=== PATIENT | male | born 1965 | race Hispanic/Latino ===

== ENCOUNTER → 2018-03-22 11:15 | Outpatient (CLI) | payer OTHER, SELFPAY ==
[2018-03-22 11:35] LABS: Add Manual Diff / Slide Review NO; Basophils Percent Auto 0.5 % (0-2); Eosinophils Percent Auto 0.5 % (2-4); Hematocrit 45.6 % (41-53); Hemoglobin 15.6 g/dL (13.5-17.5); Mean Corpuscular HGB Conc 34.2 % (30-36); Mean Corpuscular Hemoglobin 31.8 PG (26-34); Mean Corpuscular Volume 92.9 fL (80-100); Monocytes Percent Auto 13.3 % (3-14); Neutrophils Absolute Auto 5800 /uL (3000-5900); Neutrophils Percent Auto 69.7 % (50-75); Platelet Count 278 X10^3/uL (150-400); Red Blood Cell Count 4.91 X10^6/uL (4.5-5.9); Red Cell Distribution Width 13.5 % (11.6-14.8); White Blood Cell Count 8.4 X10^3/uL (4.5-11.0)
[2018-03-22 11:54] LABS: Alanine Aminotransferase 42 IU/L (21-72); Albumin 4.9 g/dL (3.5-5.0); Albumin Globulin Ratio 1.4 (1.0-2.8); Alkaline Phosphatase 64 U/L (38-126); Aspartate Aminotransferase 40 IU/L (17-59); BUN Creatinine Ratio 8.8 (6-22); Blood Urea Nitrogen 7 mg/dL (9-20); Calcium 9.9 mg/dL (8.4-10.2); Carbon Dioxide 32 mmol/L (22-32); Chloride 93 mmol/L (98-107); Estimated Glomerular Filt Rate > 60.0 mL/min (>60); Globulin 3.4 g/dL (1.7-4.1); Glucose 95 mg/dL (70-100); HEMOLYSIS < 15 (0-50); Lactate Dehydrogenase 417 U/L (313-618); Potassium 4.5 mmol/L (3.4-5.1); Sodium 138 mmol/L (137-145); Total Protein 8.3 g/dL (6.3-8.2)
== END ==
PROVIDERS: Visit Provider Nurse Practitioner Gerontology
DX: C82.90 Follicular lymphoma, unspecified, unspecified site (principal)
CPT/HCPCS: 36415; 80053; 83615; 85025

== ENCOUNTER 2018-08-06 11:30 | Oncology outpatient (ONC) | payer OTHER, SELFPAY ==
[2018-08-06 11:48] VITALS: BP 138/95; PULSE 79; RESP 18; TEMP 36.8; O2SAT 98
--- NOTE | 2018-08-06 11:54 | ONC.PN ---
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 He underwent a mammogram and ultrasound and core biopsy of a left breast mass on 05/07/2017. Located within [facility] consulted and concluded that the expression of CD10, BCL6, and BCL2 is most consistent with in follicular lymphoma. He was consulted with Dr. Ritchie Clemente at [facility]. A PET CT scan was performed in [place] on 05/28/2017 and showed a 3.1 x 2.2 cm soft tissue nodule in the subcutaneous tissues of the left anterior chest wall with an SUV maximum 5.6 with no other sites of active disease. Dr. Clemente performed a bone marrow biopsy and aspiration which was negative for lymphoma. He underwent excisional biopsy of left chest wall mass on July 04 showing a B-cell lymphoma with follicular center origin, grade 1-[address] Galan felt that he should undergo radiation therapy with no chemotherapy. Dr. Engel at [facility] was consulted and patient underwent radiation therapy 3060 cGy in 10 doses between 08/11/2017 to 09/02/2017. Interim Events: Good energy. Good appetite. Weight has been stable. No fever, no night sweats. No SOB. No CP. No abd pain. No diarhea. No constipation. No musculosketal pain. - Additional ROS All systems PM: reviewed and no additional remarkable complaints except as stated Home Medications and Allergies Home Medications Medication Instructions Recorded Confirmed Type aspirin 81 mg PO QDAY #0 09/29/17 08/06/18 History cyanocobalamin (vitamin B-12) 1,000 mcg PO QDAY #0 10/21/17 08/06/18 History multivitamin [Multiple Vitamins] 1 tab PO QDAY #0 10/21/17 08/06/18 History fluticasone [Flonase Allergy 2 spray INTRANASAL PRN PRN 08/06/18 08/06/18 History Relief] lisinopril 2.5 mg PO DAILY 08/06/18 08/06/18 History Allergies Allergy/AdvReac Type Severity Reaction Status Date / Time meperidine [MEPERIDINE] Allergy Severe SEIZURE Unverified 01/20/18 12:26 Exam Vital signs: Temp 98.3 F 08/06/18 11:48 Pulse 79 08/06/18 11:48 Resp 18 08/06/18 11:48 BP 138/95 H 08/06/18 11:48 Pulse Ox 98 08/06/18 11:48 ECOG 1 Narrative: Constitutional: Well developed, well nourished, not in any acute respiratory distress, average body habitus, well groomed, pleasant and cooperative. HEENT: Normocephalic atraumatic. Extraocular muscle movement intact. Pupils are round, equal and reactive to light and accommodations. Anicteric sclera. No hearing difficulty; Oral mucus membrane moist and without ulcers. Neck: Supple, symmetrical, and tracheal midline; No palpable thyromegaly and no palpable lymph nodes. Respiratory: No use of accessory muscles. Clear to auscultation, and no wheezes or rales or rubs. Cardiovascular: Regular rate and rhythm, S1 and S2 normal, no murmurs gallops or rubs. No JVD. No pitting edema of lower extremities. Abdomen: Soft, nontender, non-distended, bowel sounds normal, no palpable organomegaly, no hernia, no palpable masses. Lower extremities: No palpable pedal edema. Lymphatic: no palpable lymph nodes in the neck, axillae, or groins. Musculoskeletal: normal gait and station, no clubbing, no cyanosis, no pitting edema. Skin: no rashes, no ulcers, no petechiae Neurological: Awake and alert and oriented x3. CN II-XII grossly intact. No focal motor or sensory deficit. Psychiatric: Good judgment, good insight, normal affect, normal thought process, cooperative, no depression, no anxiety. . Results - Labs Reviewed - Imaging Additional studies: Procedures Injection or infusion of other therapeutic or prophylactic substance (10/29/13) Assessment and Plan (1) Follicular lymphoma Patient has stage IAE follicular lymphoma of the left chest wall. Patient underwent surgery followed by radiotherapy. Since then has been on active surveillance. Clinically I do not think there is any evidence of disease recurrence or metastasis. The laboratory tests from March 2018 showed slightly elevated total protein level (8.3), otherwise are unremarkable. I talked with the patient that I will continue current active surveillance Plan: 1. RTC in 6 months 2. CBC, CMP, LDH, B2M and SPEP w/reflex IFX 3. Instructed the patient to call us if there is any new signs or new concerns.
--- NOTE | 2018-08-06 12:01 | P.PNONC_ITS ---
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 He underwent a mammogram and ultrasound and core biopsy of a left breast mass on . [facility] consulted and concluded that the expression of CD10, BCL6, and BCL2 is most consistent with in follicular lymphoma. He was consulted with Dr. Ritchie Clemente at [facility]. A PET CT scan was performed in [place] on 05/28/2017 and showed a 3.1 x 2.2 cm soft tissue nodule in the subcutaneous tissues of the left anterior chest wall with an SUV maximum 5.6 with no other sites of active disease. Dr. Clemente performed a bone marrow biopsy and aspiration which was negative for lymphoma. He underwent excisional biopsy of left chest wall mass on July 04 showing a B-cell lymphoma with follicular center origin, grade 1-[address] Galan felt that he should undergo radiation therapy with no chemotherapy. Dr. Engel at [facility] was consulted and patient underwent radiation therapy 3060 cGy in 10 doses between 08/11/2017 to 2016. Interim Events: Good energy. Good appetite. Weight has been stable. No fever, no night sweats. No SOB. No CP. No abd pain. No diarhea. No constipation. No musculosketal pain. - Additional ROS All systems PM: reviewed and no additional remarkable complaints except as stated Home Medications and Allergies Home Medications Medication Instructions Recorded Confirmed Type aspirin 81 mg PO QDAY #0 09/29/17 08/06/18 History cyanocobalamin (vitamin B-12) 1,000 mcg PO QDAY #0 10/21/17 08/06/18 History multivitamin [Multiple Vitamins] 1 tab PO QDAY #0 10/21/17 08/06/18 History fluticasone [Flonase Allergy 2 spray INTRANASAL PRN PRN 08/06/18 08/06/18 History Relief] lisinopril 2.5 mg PO DAILY 08/06/18 08/06/18 History Allergies Allergy/AdvReac Type Severity Reaction Status Date / Time meperidine [MEPERIDINE] Allergy Severe SEIZURE Unverified 01/20/18 12:26 Exam Vital signs: Temp 98.3 F 08/06/18 11:48 Pulse 79 08/06/18 11:48 Resp 18 08/06/18 11:48 BP 138/95 H 08/06/18 11:48 Pulse Ox 98 08/06/18 11:48 ECOG 1 Narrative: Constitutional: Well developed, well nourished, not in any acute respiratory distress, average body habitus, well groomed, pleasant and cooperative. HEENT: Normocephalic atraumatic. Extraocular muscle movement intact. Pupils are round, equal and reactive to light and accommodations. Anicteric sclera. No hearing difficulty; Oral mucus membrane moist and without ulcers. Neck: Supple, symmetrical, and tracheal midline; No palpable thyromegaly and no palpable lymph nodes. Respiratory: No use of accessory muscles. Clear to auscultation, and no wheezes or rales or rubs. Cardiovascular: Regular rate and rhythm, S1 and S2 normal, no murmurs gallops or rubs. No JVD. No pitting edema of lower extremities. Abdomen: Soft, nontender, non-distended, bowel sounds normal, no palpable organomegaly, no hernia, no palpable masses. Lower extremities: No palpable pedal edema. Lymphatic: no palpable lymph nodes in the neck, axillae, or groins. Musculoskeletal: normal gait and station, no clubbing, no cyanosis, no pitting edema. Skin: no rashes, no ulcers, no petechiae Neurological: Awake and alert and oriented x3. CN II-XII grossly intact. No focal motor or sensory deficit. Psychiatric: Good judgment, good insight, normal affect, normal thought process , cooperative, no depression, no anxiety. . Results - Labs Reviewed - Imaging Additional studies: Procedures Injection or infusion of other therapeutic or prophylactic substance (10/29/13) Assessment and Plan (1) Follicular lymphoma Patient has stage IAE follicular lymphoma of the left chest wall. Patient underwent surgery followed by radiotherapy. Since then has been on active surveillance. Clinically I do not think there is any evidence of disease recurrence or metastasis. The laboratory tests from March 2018 showed slightly elevated total protein level (8.3), otherwise are unremarkable. I talked with the patient that I will continue current active surveillance Plan: 1. RTC in 6 months 2. CBC, CMP, LDH, B2M and SPEP w/reflex IFX 3. Instructed the patient to call us if there is any new signs or new concerns.
== END 2018-08-19 13:25 ==
PROVIDERS: PCP Internal Medicine; Visit Provider Internal Medicine Hematology & Oncology
DX: C82.12 Follicular lymphoma grade II, intrathoracic lymph nodes (principal)
CPT/HCPCS: 99214

== ENCOUNTER 2018-10-17 04:44 | Emergency (ER) | payer OTHER, SELFPAY ==
[2018-10-17 04:51] VITALS: BP 153/89; PULSE 88; RESP 18; TEMP 36.6; O2SAT 98; BMI 30.5
--- NOTE | 2018-10-17 04:55 | DI.US.S_ITS ---
PROCEDURE: US ABDOMEN COMPLETE INDICATIONS: PAIN TECHNIQUE: Real-time scanning was performed of the abdominal and retroperitoneal organs, with image documentation. COMPARISON: [facility], CT, KIDNEY/ URETER/BLADDER, 08/23/2013, 15:57. FINDINGS: Liver: Liver is normal in size and increased in echogenicity consistent with fatty infiltration. Gallbladder: No gallstones, gallbladder wall thickening, or pericholecystic fluid. Biliary ducts: Intrahepatic bile ducts are non-dilated. Extrahepatic bile duct caliber measures up to 7 mm. Normal is 6-7 mm or less in diameter, or 10 mm or less post-cholecystectomy. Pancreas: Not well-seen due to bowel gas. Spleen: Spleen is normal in size and homogeneous in echotexture. Kidneys: Right kidney measures 10.7 cm long; left kidney measures 9.9 cm long. No hydronephrosis. Aorta: Visualized aorta is normal in caliber at less than 3 cm. Iliacs: Proximal common iliac arteries are not well seen. IVC: Intrahepatic inferior vena cava is patent. Miscellaneous: No free abdominal fluid. IMPRESSION: 1. No evidence of cholelithiasis or cholecystitis. 2. Mild prominence of the common bile duct measuring up to 7 mm. Recommend correlation with laboratory values. 3. Increased hepatic echogenicity compatible with steatosis. Dictated by: Pranav Lowery M.D. on 10/17/2018 at 12:41 Approved by: Pranav Lowery M.D. on 10/17/2018 at 12:44
--- NOTE | 2018-10-17 05:10 | ED_ITS ---
HPI - Abdominal Pain General Chief Complaint: Abdominal Pain Stated Complaint: Anxiety, rapid breathing, abd pain Time Seen by Provider: 10/17/18 04:54 Source: patient, family and EMS Mode of arrival: EMS Limitations: no limitations History of Present Illness HPI narrative: 53-year-old smoking male presents by EMS for evaluation abdominal pain and difficulty breathing. He has a history of anxiety, depression hypertension and went to bed feeling normal. He awoke feeling a bit abnormal and felt thirsty and hungry, he consumes some peanut butter and soon thereafter developed significant epigastric pain and nausea which scared him, he proceeded to feel short of breath and breathing rapidly. He felt like he could move his body and called for EMS transport. His pain is worse with motion and improves with rest. He has nausea but denies any vomiting. He has had no fever or chills. He drank a significant amount of alcohol yesterday, more than is normal for him. He he denies any change in bowel habits. He denies any recent travel, surgeries or other risk factors for PE. MD complaint: abdominal pain Onset (ago): minute(s) Pain Consistency: intermittent Location: epigastric Severity: moderate Quality: cramping and stabbing Radiation: back Migration to: no migration Relieving factors: nothing Exacerbating factors: eating Associated symptoms: nausea and other Related Data Home Medications Medication Instructions Recorded Confirmed aspirin 81 mg PO QDAY #0 09/29/17 08/06/18 cyanocobalamin (vitamin B-12) 1,000 mcg PO QDAY #0 10/21/17 08/06/18 multivitamin [Multiple Vitamins] 1 tab PO QDAY #0 10/21/17 08/06/18 fluticasone [Flonase Allergy 2 spray INTRANASAL PRN PRN 08/06/18 08/06/18 Relief] lisinopril 2.5 mg PO DAILY 08/06/18 08/06/18 Previous Rx's Medication Instructions Recorded ondansetron 4 mg PO TID-QID PRN #10 tab 10/17/18 Allergies Allergy/AdvReac Type Severity Reaction Status Date / Time meperidine [MEPERIDINE] Allergy Severe SEIZURE Unverified 01/20/18 12:26 Review of Systems Review of Systems All systems reviewed & are unremarkable except as noted in HPI and below Constitutional Denies chills, Denies fever(s), Denies lethargy and Denies weakness Eyes Denies change in vision, Denies eye discharge, Denies irritation and Denies loss of vision ENT Ears, Nose, Mouth, and Throat: Denies change in voice, Denies neck pain and Denies sore throat Cardiovascular Denies chest pain, Denies irregular heart rhythm, Denies lightheadedness, Denies palpitations, Reports dyspnea, Denies dyspnea on exertion and Denies orthopnea Respiratory Denies cough, Reports dyspnea, Denies dyspnea on exertion and Denies wheezing Gastrointestinal Gastrointestinal: Reports abdominal pain, Denies change in bowel habits, Denies diarrhea, Reports nausea and Denies vomiting Genitourinary Denies hematuria, Denies flank pain, Denies urinary incontinence and Denies urinary urgency Musculoskeletal Denies neck pain Integumentary/Breasts Denies pruritus, Denies erythema, Denies rash and Denies wounds Neurologic Denies confusion, Denies loss of vision and Denies weakness Psychiatric Reports anxiety, Denies confusion, Denies depression, Denies homicidal ideation and Denies suicidal ideation Endocrine Denies palpitations Hematologic/Lymphatic Denies easy bruising Allergic/Immunologic Denies wheezing PFSH Social History details: engaged lives independently: Yes Smoking Status: Current every day smoker Exam Narrative Exam Narrative: GENERAL: 53-year-old male, anxious, tearful, smells of alcohol HEAD: Atraumatic. Normocephalic. No temporal or scalp tenderness. EYES: Pupils equal round and reactive. Extraocular motions intact. No scleral icterus. No injection or drainage. ENT: Nose without bleeding, purulent drainage or septal hematoma. Throat without erythema, tonsillar hypertrophy or exudate. Uvula midline. Airway patent. NECK: Trachea midline. No JVD or lymphadenopathy. Supple, nontender, no meningeal signs. CARDIOVASCULAR: Regular rate and rhythm without murmurs, gallops, or rubs. RESPIRATORY: Clear to auscultation. Breath sounds equal bilaterally. No wheezes , rales, or rhonchi. GASTROINTESTINAL: Abdomen soft, tender epigastrium, nondistended. No hepato- splenomegaly, or palpable masses. No guarding. EXTREMITIES: No clubbing, cyanosis, or edema. No joint tenderness, effusion, or edema noted. BACK: Nontender without deformity or crepitance. No flank tenderness. NEURO: AOx3. SKIN: No rash or erythema. Initial Vital Signs Initial Vital Signs: Vital Signs Temperature 97.8 F 10/17/18 04:51 Pulse Rate 88 10/17/18 04:51 Respiratory Rate 18 10/17/18 04:51 Blood Pressure 153/89 H 10/17/18 04:51 Pulse Oximetry 98 10/17/18 04:51 Course Orders Ordered: Discontinued Medications Sodium Chloride (Normal Saline 0.9%) 1,000 mls @ 1,000 mls/hr IV BOLUS ONE Stop: 10/17/18 05:53 Last Infusion: 10/17/18 06:20 Dose: 0 mls/hr Admin: 10/17/18 05:16 Dose: 1,000 mls/hr Lorazepam (Ativan) 0.5 mg IV NOW ONE Stop: 10/17/18 04:57 Last Admin: 10/17/18 06:20 Dose: Ondansetron HCl (Zofran) 4 mg IV NOW ONE Stop: 10/17/18 05:15 Last Admin: 10/17/18 05:15 Dose: 4 mg Vital Signs - 8 hr 10/17/18 04:51 Temperature 97.8 F Pulse Rate 88 Respiratory Rate 18 Blood Pressure 153/89 H Pulse Oximetry 98 MDM - Abdominal Pain Differential Diagnosis Differential diagnosis: Likely abdominal pain, gastroenteritis, pancreatitis and small bowel obstruction Lab Data Attestation: I reviewed the patient's lab results. Result diagrams: 10/17/18 05:05 10/17/18 05:05 Lab Results 10/17/18 10/17/18 10/17/18 Range/Units 05:05 05:05 05:05 WBC 9.8 (4.5-11.0) X10^3/uL RBC 4.73 (4.5-5.9) X10^6/uL Hgb 15.5 (13.5-17.5) g/dL Hct 44.8 (41-53) % MCV 94.7 (80-100) fL MCH 32.7 (26-34) PG MCHC 34.6 (30-36) % RDW 14.0 (11.6-14.8) % Plt Count 242 (150-400) X10^3/uL Neut % (Auto) 68.0 (50-75) % Lymph % (Auto) 22.6 L (25-40) % [place] % (Auto) 5.9 (3-14) % Eos % (Auto) 3.0 (2-4) % Baso % (Auto) 0.5 (0-2) % Neut # (Auto) 6700 (0327-1063) /uL Sodium 142 (137-145) mmol/L Potassium 3.6 (3.4-5.1) mmol/L Chloride 101 (98-107) mmol/L Carbon Dioxide 22 (22-32) mmol/L BUN 18 (9-20) mg/dL Creatinine 0.90 (0.66-1.25) mg/dL Estimated GFR > 60.0 (>60) mL/min BUN/Creatinine Ratio 20.0 (6-22) Glucose 114 H (70-100) mg/dL Calcium 9.9 (8.4-10.2) mg/dL Total Bilirubin 0.3 (0.2-1.3) mg/dL AST 43 (17-59) IU/L ALT 48 (21-72) IU/L Alkaline Phosphatase 79 (38-126) U/L Troponin I < 0.012 (0.01-0.034) ng/mL Total Protein 7.8 (6.3-8.2) g/dL Albumin 4.7 (3.5-5.0) g/dL Globulin 3.1 (1.7-4.1) g/dL Albumin/Globulin Ratio 1.5 (1.0-2.8) Lipase 150 (23-300) U/L Ethyl Alcohol 166 mg/dL MDM Narrative Medical decision making narrative: Multiple etiologies of these symptoms including KS/PE which are thought much less likely given resolution of symptoms on arrival, normal EKG, normal vitals and lack of risk factors. GB/pancreatitis considered but thought less likely given normal labs and US. Patient and fiancee given return precautions including N/V/Fever >101, CP/SOB, worsening abdominal pain, etc. He verbalizes understanding and agreement with plan. Discharge Plan Departure Patient Disposition: Home Clinical Impression: Abdominal pain, acute, epigastric, Anxiety, Alcohol abuse Discharge Date/Time: 10/17/18 06:36 Interventions: ED Discharge Assessment Last Done: 10/17/18 06:33 Instructions: DI for Abdominal Pain-Adult Activity Restrictions/Additional Instructions: 1. Drink plenty of fluids with frequent small sips. 2. For the next 24 hours a clear liquid diet is advised. After that please employ a brat diet which would include bananas, rice, apples, toast. 3. Please take medications as directed. 4. Please follow-up with your doctor in the next 1-2 days. Call the office for an appointment. 5. Please return to the emergency Department for any worsening or persistent symptoms, such as increasing pain or fever. Prescriptions: New ondansetron 4 mg tablet,disintegrating 4 mg PO TID-QID PRN (Reason: nausea and vomiting) Qty: 10 RF: 0 No Action aspirin 81 MG tablet,chewable 81 mg PO QDAY Qty: 0 RF: 0 cyanocobalamin (vitamin B-12) 1,000 MCG tablet extended release 1,000 mcg PO QDAY Qty: 0 RF: 0 multivitamin [Multiple Vitamins] 1 EACH tablet 1 tab PO QDAY Qty: 0 RF: 0 fluticasone [Flonase Allergy Relief] 9.9 ML spray,suspension 2 spray Intranasal PRN PRN (Reason: Allergy Symptoms) RF: 0 lisinopril 2.5 mg Tablet 2.5 mg PO DAILY RF: 0 Referrals: Omayra Horton MD [Primary Care Provider] -
[2018-10-17] MEDS: ONDANSETRON 4 MG/2 ML INJ IV (05:15)
[2018-10-17] MEDS: SODIUM CHLORIDE 0.9% 1,000 ML 1000 ML IV (05:16)
[2018-10-17 05:30] LABS: Alanine Aminotransferase 48 IU/L (21-72); Albumin 4.7 g/dL (3.5-5.0); Albumin Globulin Ratio 1.5 (1.0-2.8); Alkaline Phosphatase 79 U/L (38-126); Aspartate Aminotransferase 43 IU/L (17-59); Bilirubin Total 0.3 mg/dL (0.2-1.3); Blood Urea Nitrogen 18 mg/dL (9-20); Calcium 9.9 mg/dL (8.4-10.2); Carbon Dioxide 22 mmol/L (22-32); Chloride 101 mmol/L (98-107); Estimated Glomerular Filt Rate > 60.0 mL/min (>60); Globulin 3.1 g/dL (1.7-4.1); Glucose 114 mg/dL (70-100); HEMOLYSIS 15 (0-50); Potassium 3.6 mmol/L (3.4-5.1); Total Protein 7.8 g/dL (6.3-8.2)
[2018-10-17 05:31] LABS: Sodium 142 mmol/L (137-145)
[2018-10-17 05:36] LABS: Add Manual Diff / Slide Review NO; Basophils Percent Auto 0.5 % (0-2); Hematocrit 44.8 % (41-53); Hemoglobin 15.5 g/dL (13.5-17.5); Lymphocytes Percent Auto 22.6 % (25-40); Mean Corpuscular HGB Conc 34.6 % (30-36); Mean Corpuscular Hemoglobin 32.7 PG (26-34); Mean Corpuscular Volume 94.7 fL (80-100); Monocytes Percent Auto 5.9 % (3-14); Neutrophils Absolute Auto 6700 /uL (1500-7000); Platelet Count 242 X10^3/uL (150-400); Red Blood Cell Count 4.73 X10^6/uL (4.5-5.9); White Blood Cell Count 9.8 X10^3/uL (4.5-11.0)
[2018-10-17 05:47] LABS: Troponin I < 0.012 ng/mL (0.01-0.034)
[2018-10-17 06:05] LABS: Lipase 150 U/L (23-300)
[2018-10-17 06:29] LABS: Ethanol (ETOH) 166 mg/dL
[2018-10-17 06:33] VITALS: BP 121/78; PULSE 84; RESP 16; O2SAT 95
== END 2018-10-17 06:36 | disposition home or self-care (01) ==
PROVIDERS: Emergency Provider Emergency Medicine; PCP Internal Medicine
DX: R10.13 Epigastric pain (principal); F41.9 Anxiety disorder, unspecified; F10.10 Alcohol abuse, uncomplicated
CPT/HCPCS: 36591; 76700; 80053; 80320; 83690; 84484; 85025; 93005; 96361; 96374; 99283; 99285; J2405

== ENCOUNTER → 2018-12-10 09:46 | Outpatient (CLI) | payer OTHER, SELFPAY ==
--- NOTE | 2018-12-10 11:56 | DI.CT.S_ITS ---
PROCEDURE: CT CHEST ABD PEL W CON INDICATIONS: follicular lymphoma, mass left chest TECHNIQUE: After the administration of oral and intravenous contrast, 5 mm thick sections acquired from the lung apices to the symphysis. 5 mm coronal and sagittal reformats were performed, with additional 7 mm coronal MIP reformats through the lungs. For radiation dose reduction, the following was used: automated exposure control, adjustment of mA and/or kV according to patient size. COMPARISON: [facility], CT, CT SIM, 07/30/2017, 13:40. FINDINGS: Image quality: Excellent. CHEST: Lungs and pleura: No acute airspace opacities. No suspicious pulmonary mass or nodules. No pleural effusions or pneumothorax. Central and peripheral airways appear patent and normal in caliber. Mediastinum: Heart size is normal. No pericardial effusion. No mediastinal or hilar adenopathy by size criteria. Thoracic aorta and central pulmonary arteries are normal in size. Esophagus is normal in caliber. No hiatal hernia. Chest wall: No axillary or supraclavicular adenopathy by size criteria. Thyroid gland is unremarkable. Previously noted irregular mass involving the subcutaneous tissues of the lower, outer aspect of the left chest wall is significantly smaller and less conspicuous. It previously measured approximately 3.7 cm x 2.1 cm in transverse dimension and today it measures approximately 2.7 cm x 0.7 cm in transverse dimension. This may represent residual mass versus sequela of prior treatment. No evidence for underlying osseous erosions. No adjacent stranding. ABDOMEN: Solid organs: Liver is normal in size and enhancement. There is diffuse hypoattenuation of the liver compatible with hepatic steatosis. Gallbladder is unremarkable. Biliary system is non dilated. Pancreas enhances normally. Spleen is normal in size and enhancement. No adrenal nodules. Kidneys demonstrate normal size and enhancement, without hydronephrosis. Peritoneum and bowel: Bowel loops demonstrate normal wall thickness and caliber. No free fluid or air. Nodes and vessels: No retroperitoneal or mesenteric adenopathy by size criteria. Aorta and inferior vena cava are normal in size. Miscellaneous: No ventral hernias. PELVIS: Genitourinary: Bladder wall thickness is normal. Miscellaneous: No inguinal hernias or adenopathy. Bones: No suspicious bony lesions. No vertebral body compression fractures. IMPRESSION: 1. Significant interval decrease in size and conspicuity of lower, outer left chest wall mass which may represent residual tumor versus sequela of previous treatment. There is no erosions, and adjacent soft tissue stranding, or lymphadenopathy. Otherwise, no CT evidence for metastatic disease in the chest, abdomen, or pelvis. 2. Diffuse hepatic steatosis. Dictated by: Rio Hernadez M.D. on 12/14/2018 at 10:59 Approved by: Rio Hernadez M.D. on 12/14/2018 at 11:11
== END ==
PROVIDERS: PCP Internal Medicine; Visit Provider Nurse Practitioner Gerontology
DX: C82.90 Follicular lymphoma, unspecified, unspecified site (principal); R22.2 Localized swelling, mass and lump, trunk; K76.0 Fatty (change of) liver, not elsewhere classified
CPT/HCPCS: 71260; 74177; Q9967

== ENCOUNTER → 2019-02-03 15:00 | Oncology outpatient (ONC) | payer OTHER, SELFPAY ==
[2018-12-07 14:41] VITALS: BP 147/84; PULSE 74; RESP 20; TEMP 36.3; O2SAT 98
[2018-12-07 15:45] LABS: Add Manual Diff / Slide Review NO; Basophils Absolute Auto 100 /uL (0-100); Basophils Percent Auto 1.1 % (0-2); Eosinophils Absolute Auto 200 /uL (0-450); Eosinophils Percent Auto 2.8 % (2-4); Hematocrit 39.6 % (41-53); Hemoglobin 14.2 g/dL (13.5-17.5); Lymphocytes Absolute Auto 2000 /uL (1100-4500); Lymphocytes Percent Auto 25.9 % (25-40); Mean Corpuscular HGB Conc 35.8 % (30-36); Mean Corpuscular Hemoglobin 32.7 PG (26-34); Mean Corpuscular Volume 91.3 fL (80-100); Monocytes Absolute Auto 800 /uL (0-900); Monocytes Percent Auto 10.4 % (3-14); Neutrophils Absolute Auto 4600 /uL (1500-7000); Neutrophils Percent Auto 59.8 % (50-75); Platelet Count 268 X10^3/uL (150-400); Red Blood Cell Count 4.34 X10^6/uL (4.5-5.9); Red Cell Distribution Width 13.6 % (11.6-14.8); White Blood Cell Count 7.7 X10^3/uL (4.5-11.0)
[2018-12-07 15:54] LABS: Alanine Aminotransferase 72 IU/L (21-72); Albumin Globulin Ratio 1.5 (1.0-2.8); Alkaline Phosphatase 59 U/L (38-126); Aspartate Aminotransferase 57 IU/L (17-59); BUN Creatinine Ratio 22.2 (6-22); Bilirubin Total 0.5 mg/dL (0.2-1.3); Blood Urea Nitrogen 20 mg/dL (9-20); Calcium 9.8 mg/dL (8.4-10.2); Carbon Dioxide 28 mmol/L (22-32); Chloride 96 mmol/L (98-107); Estimated Glomerular Filt Rate > 60.0 mL/min (>60); Globulin 3.3 g/dL (1.7-4.1); Glucose 93 mg/dL (70-100); HEMOLYSIS 27 (0-50); Lactate Dehydrogenase 435 U/L (313-618); Sodium 138 mmol/L (137-145); Total Protein 8.3 g/dL (6.3-8.2)
--- NOTE | 2018-12-07 16:40 | P.PNONC_ITS ---
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 Radiation was completed September 02, 2017. Patient presents today for same day urgent visit reporting a mass the size of a nickel in my left breast. Pt states she first noticed this 5-7 days ago. Patient denies any other changes in his health specifically no night sweats, no fatigue, no loss of appetite, no unexplained weight loss, no abdominal pain, nausea. No change in bowel or bladder habits. He remains working full-time at the [employer]. No headaches. He has not noticed any other lumps or bumps aside from left breast. He states it does feel similar to the mass he noted at time of diagnosis in 2016. Oncological History He felt a tennis ball sized mass on his left chest wall in March 2017. He underwent a mammogram and ultrasound and core biopsy of a left breast mass on 05/07/2017. [facility] consulted and concluded that the expression of CD10, BCL6, and BCL2 is most consistent with in follicular lymphoma. He was consulted with Dr. Ritchie Clemente at [facility]. A PET CT scan was performed in [place] on 05/28/2017 and showed a 3.1 x 2.2 cm soft tissue nodule in the subcutaneous tissues of the left anterior chest wall with an SUV maximum 5.6 with no other sites of active disease. Dr. Clemente performed a bone marrow biopsy and aspiration which was negative for lymphoma. He underwent excisional biopsy of left chest wall mass on July 04 showing a B-cell lymphoma with follicular center origin, grade 1-[address] Galan felt that he should undergo radiation therapy with no chemotherapy. Dr[facility] was [facility] and patient underwent radiation therapy 3060 cGy in 10 doses between 08/11/2017 to 09/02/2017. Home Medications and Allergies Home Medications Medication Instructions Recorded Confirmed Type aspirin 81 mg PO QDAY #0 09/29/17 08/06/18 History cyanocobalamin (vitamin B-12) 1,000 mcg PO QDAY #0 10/21/17 08/06/18 History multivitamin [Multiple Vitamins] 1 tab PO QDAY #0 10/21/17 08/06/18 History fluticasone [Flonase Allergy 2 spray INTRANASAL PRN PRN 08/06/18 08/06/18 History Relief] lisinopril 2.5 mg PO DAILY 08/06/18 08/06/18 History Allergies Allergy/AdvReac Type Severity Reaction Status Date / Time meperidine [MEPERIDINE] Allergy Severe SEIZURE Unverified 01/20/18 12:26 Exam Vital signs: Vital Signs Temp Pulse Resp BP Pulse Ox 12/07/18 14:41 97.3 F L 74 20 147/84 H 98 Intake and Output 12/07/18 12/07/18 12/07/18 07:59 15:59 23:59 Other: Weight 95.3 kg Patient Weight 12/08/18 07:59 Weight 95.3 kg Narrative: well appearing - Constitutional positive no acute distress - Routine HEENT Exam Eye: Present: conjunctivae pink. Absent: conjunctival icterus, scleral injection ENT: Present: mucous membranes moist, oropharynx clear - Routine Neck Exam Present: supple. Absent: lymphadenopathy - Routine Chest/Breast/Axilla Exam Chest wall exam standard: Absent: tenderness, mass Breast: Absent: tenderness, induration, mass, swelling Axillae: Absent: lymphadenopathy, mass, tenderness Comments: no palpable masses, no palpable adenopathy. Pt also unable to locate previously identified mass left breast stating I think it is gone. - Routine Respiratory Exam Present: Clear to auscultation bilaterally. Absent: rales, rhonchi, wheezes - Routine Cardiovascular Exam Present: RRR, S1, S2. Absent: murmur, gallop, rubs, JVD - Routine Abdominal Exam Present: soft, normoactive bowel sounds. Absent: tenderness, distended, organomegaly - Routine Extremities Exam Absent: edema, calf tenderness - Routine Skin Exam Present: intact, normal turgor. Absent: rash - Routine Neurological Exam Present: alert, oriented X3 - Routine Psychiatric Exam Present: normal affect Results - Labs Laboratory Last Values WBC 7.7 X10^3/uL (4.5-11.0) 12/07/18 15:31 RBC 4.34 X10^6/uL (4.5-5.9) L 12/07/18 15:31 Hgb 14.2 g/dL (13.5-17.5) 12/07/18 15:31 Hct 39.6 % (41-53) L 12/07/18 15:31 MCV 91.3 fL (80-100) 12/07/18 15: MCH 32.7 PG (26-34) 12/07/18 15: MCHC 35.8 % (30-36) 12/07/18 15:31 RDW 13.6 % (11.6-14.8) 12/07/18 15:31 Plt Count 268 X10^3/uL (150-400) 12/07/18 15:31 Neut % (Auto) 59.8 % (50-75) 12/07/18 15:31 Lymph % (Auto) 25.9 % (25-40) 12/07/18 15:31 [place] % (Auto) 10.4 % (3-14) 12/07/18 15:31 Eos % (Auto) 2.8 % (2-4) 12/07/18 15:31 Baso % (Auto) 1.1 % (0-2) 12/07/18 15: Neut # (Auto) 4600 /uL (9880-9530) 12/07/18 15:31 Lymph # (Auto) 2000 /uL (6700-8939) 12/07/18 15:31 [place] # (Auto) 800 /uL (0-900) 12/07/18 15: Eos # (Auto) 200 /uL (0-450) 12/07/18 15:31 Baso # (Auto) 100 /uL (0-100) 12/07/18 15:31 Sodium 138 mmol/L (137-145) 12/07/18 15:31 Potassium 4.0 mmol/L (3.4-5.1) 12/07/18 15:31 Chloride 96 mmol/L (98-107) L 12/07/18 15:31 Carbon Dioxide 28 mmol/L (22-32) 12/07/18 15:31 BUN 20 mg/dL (9-20) 12/07/18 15:31 Creatinine 0.90 mg/dL (0.66-1.25) 12/07/18 15:31 Estimated GFR > 60.0 mL/min (>60) 12/07/18 15:31 BUN/Creatinine Ratio 22.2 (6-22) H 12/07/18 15:31 Glucose 93 mg/dL (70-100) 12/07/18 15:31 Calcium 9.8 mg/dL (8.4-10.2) 12/07/18 15:31 Total Bilirubin 0.5 mg/dL (0.2-1.3) 12/07/18 15:31 AST 57 IU/L (17-59) 12/07/18 15:31 ALT 72 IU/L (21-72) 12/07/18 15:31 Alkaline Phosphatase 59 U/L (38-126) 12/07/18 15:31 Lactate Dehydrogenase 435 U/L (313-618) 12/07/18 15:31 Total Protein 8.3 g/dL (6.3-8.2) H 12/07/18 15:31 Albumin 5.0 g/dL (3.5-5.0) 12/07/18 15:31 Globulin 3.3 g/dL (1.7-4.1) 12/07/18 15:31 Albumin/Globulin Ratio 1.5 (1.0-2.8) 12/07/18 15:31 - Imaging Additional studies: Procedures Injection or infusion of other therapeutic or prophylactic substance (10/29/13) Assessment and Plan (1) Follicular lymphoma Current visit: No Status: Acute Patient is a 53-year-old male who carries a diagnosis of stage IA-E follicular lymphoma involving the left chest wall. He presents today for same day urgent v isit reporting he had a palpable mass in his left breast similar to that at time of diagnosis in 2017. On exam today I was unable to identify any palpable adenopathy, no palpable masses. Additionally, patient himself could no longer locate previously palpable left breast mass on exam today. Regardless, noting patient's history I will send him for a CT scan of chest and abdomen. It is reassuring he is without any B symptoms whatsoever. I also ordered CBC, CMP, LDH stat for today all of which unremarkable specifically LDH within normal limits at 435. We will schedule CT scan for as soon as possible hopefully within the next few days. I will have the patient return to clinic after CT scan to review results with his oncologist Dr Britt. We discussed also the possibility of PET-CT and/or bone marrow bx if indicated after CT. Pt verbalizes understanding and agrees with this plan of care.
--- NOTE | 2018-12-14 09:43 | ONC.APRN.PN ---
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 Radiation was completed September 02, 2017. Patient presents today to review recent CT imaging. Prior visit December 07, 2018 patient presented for same day urgent visit reporting a newly palpable mass in left breast. On exam that day this mass was not palpable by myself nor the patient. Regardless, we did move forward with imaging in the form of CT scan. Today on exam patient states he is no longer able to palpate the previously palpable mass in his left chest. Overall he reports excellent health . He is currently working very long hours for the next 2-4 weeks at the [employer] shut down. Patient denies any other changes in his health specifically no night sweats, no fatigue, no loss of appetite, no unexplained weight loss, no abdominal pain, nausea. No change in bowel or bladder habits. He remains working full-time at the [employer]. CT scan of chest abdomen pelvis with contrast December 10, 2018 did not demonstrate any new or metastatic disease. In fact a significant interval decrease in the size and conspicuity of previously identified left chest wall mass. No headaches. He has not noticed any other lumps or bumps aside from left breast. He states it does feel similar to the mass he noted at time of diagnosis in 2017. Oncological History He felt a tennis ball sized mass on his left chest wall in March 2017. He underwent a mammogram and ultrasound and core biopsy of a left breast mass on 05/07/2017. [facility] consulted and concluded that the expression of CD10, BCL6, and BCL2 is most consistent with in follicular lymphoma. He was consulted with Dr. Ritchie Clemente at [facility]. A PET CT scan was performed in [place] on 05/28/2017 and showed a 3.1 x 2.2 cm soft tissue nodule in the subcutaneous tissues of the left anterior chest wall with an SUV maximum 5.6 with no other sites of active disease. Dr. Clemente performed a bone marrow biopsy and aspiration which was negative for lymphoma. He underwent excisional biopsy of left chest wall mass on July 04 showing a B-cell lymphoma with follicular center origin, grade 1-[address] Galan felt that he should undergo radiation therapy with no chemotherapy. Dr. Engel at [facility] was consulted and patient underwent radiation therapy 3060 cGy in 10 doses between 08/11/2017 to 09/02/2017. Home Medications and Allergies Home Medications Medication Instructions Recorded Confirmed Type aspirin 81 mg PO QDAY #0 09/29/17 08/06/18 History cyanocobalamin (vitamin B-12) 1,000 mcg PO QDAY #0 10/21/17 08/06/18 History multivitamin [Multiple Vitamins] 1 tab PO QDAY #0 10/21/17 08/06/18 History fluticasone [Flonase Allergy 2 spray INTRANASAL PRN PRN 08/06/18 08/06/18 History Relief] lisinopril 2.5 mg PO DAILY 08/06/18 08/06/18 History Allergies Allergy/AdvReac Type Severity Reaction Status Date / Time meperidine [MEPERIDINE] Allergy Severe SEIZURE Unverified 01/20/18 12:26 Exam - Constitutional positive no acute distress - Routine Neck Exam Present: supple. Absent: lymphadenopathy - Routine Chest/Breast/Axilla Exam Breast: Absent: tenderness, induration, mass Axillae: Absent: lymphadenopathy, mass, tenderness - Routine Respiratory Exam Present: Clear to auscultation bilaterally. Absent: rales, rhonchi, wheezes - Routine Cardiovascular Exam Present: RRR, S1, S2. Absent: murmur, gallop, rubs, JVD - Routine Abdominal Exam Present: soft, normoactive bowel sounds. Absent: tenderness, distended, organomegaly - Routine Extremities Exam Absent: edema - Routine Skin Exam Present: normal turgor. Absent: rash - Routine Neurological Exam Present: alert, oriented X3 - Routine Psychiatric Exam Present: normal affect Results - Labs Laboratory Last Values WBC 7.7 X10^3/uL (4.5-11.0) 12/07/18 15:31 RBC 4.34 X10^6/uL (4.5-5.9) L 12/07/18 15:31 Hgb 14.2 g/dL (13.5-17.5) 12/07/18 15:31 Hct 39.6 % (41-53) L 12/07/18 15:31 MCV 91.3 fL (80-100) 12/07/18 15:31 MCH 32.7 PG (26-34) 12/07/18 15:31 MCHC 35.8 % (30-36) 12/07/18 15:31 RDW 13.6 % (11.6-14.8) 12/07/18 15:31 Plt Count 268 X10^3/uL (150-400) 12/07/18 15:31 Neut % (Auto) 59.8 % (50-75) 12/07/18 15:31 Lymph % (Auto) 25.9 % (25-40) 12/07/18 15:31 [place] % (Auto) 10.4 % (3-14) 12/07/18 15:31 Eos % (Auto) 2.8 % (2-4) 12/07/18 15:31 Baso % (Auto) 1.1 % (0-2) 12/07/18 15:31 Neut # (Auto) 4600 /uL (2541-9200) 12/07/18 15:31 Lymph # (Auto) 2000 /uL (5885-1726) 12/07/18 15:31 [place] # (Auto) 800 /uL (0-900) 12/07/18 15:31 Eos # (Auto) 200 /uL (0-450) 12/07/18 15:31 Baso # (Auto) 100 /uL (0-100) 12/07/18 15:31 Sodium 138 mmol/L (137-145) 12/07/18 15:31 Potassium 4.0 mmol/L (3.4-5.1) 12/07/18 15:31 Chloride 96 mmol/L (98-107) L 12/07/18 15:31 Carbon Dioxide 28 mmol/L (22-32) 12/07/18 15:31 BUN 20 mg/dL (9-20) 12/07/18 15:31 Creatinine 0.90 mg/dL (0.66-1.25) 12/07/18 15:31 Estimated GFR > 60.0 mL/min (>60) 12/07/18 15:31 BUN/Creatinine Ratio 22.2 (6-22) H 12/07/18 15:31 Glucose 93 mg/dL (70-100) 12/07/18 15:31 Calcium 9.8 mg/dL (8.4-10.2) 12/07/18 15:31 Total Bilirubin 0.5 mg/dL (0.2-1.3) 12/07/18 15:31 AST 57 IU/L (17-59) 12/07/18 15:31 ALT 72 IU/L (21-72) 12/07/18 15:31 Alkaline Phosphatase 59 U/L (38-126) 12/07/18 15:31 Lactate Dehydrogenase 435 U/L (313-618) 12/07/18 15:31 Total Protein 8.3 g/dL (6.3-8.2) H 12/07/18 15:31 Albumin 5.0 g/dL (3.5-5.0) 12/07/18 15:31 Globulin 3.3 g/dL (1.7-4.1) 12/07/18 15:31 Albumin/Globulin Ratio 1.5 (1.0-2.8) 12/07/18 15:31 - Imaging Additional studies: Procedures Injection or infusion of other therapeutic or prophylactic substance (10/29/13) Assessment and Plan (1) Follicular lymphoma Current visit: No Status: Acute Patient is a 53-year-old male who carries a diagnosis of stage IA-E follicular lymphoma involving the left chest wall. Patient was seen urgently per his request on December 07, 2018 as he noticed a new palpable mass in his left chest. This is in the same place where he felt previous mass and was subsequently identified as follicular lymphoma. On exam that day I was unable to palpate any mass, patient also was unable to palpate on that day. He has not been able to palpate since. He had no other constitutional symptoms to report. Regardless I did order CT scan which did not identify any new disease, no metastatic disease. He has residual tumor versus possible sequelae of previous treatment in his lower outer left chest wall however this is significantly decreased in size and conspicuity of previous imaging. The pt exam and scan are quite reassuring, no clinical signs or symptoms to suggest disease recurrence. Patient has previously scheduled appointment in January of [address] Britt which I have asked him to keep.
[2018-12-14 15:08] VITALS: BP 131/86; PULSE 72; RESP 18; TEMP 36.6; O2SAT 98
[2019-01-26 12:29] LABS: Add Manual Diff / Slide Review NO; Basophils Absolute Auto 100 /uL (0-100); Basophils Percent Auto 0.7 % (0-2); Eosinophils Absolute Auto 200 /uL (0-450); Eosinophils Percent Auto 2.9 % (2-4); Hematocrit 43.5 % (41-53); Hemoglobin 14.8 g/dL (13.5-17.5); Lymphocytes Absolute Auto 2100 /uL (1100-4500); Mean Corpuscular HGB Conc 33.9 % (30-36); Mean Corpuscular Hemoglobin 32.5 PG (26-34); Mean Corpuscular Volume 95.9 fL (80-100); Monocytes Absolute Auto 900 /uL (0-900); Monocytes Percent Auto 10.7 % (3-14); Neutrophils Absolute Auto 4800 /uL (1500-7000); Neutrophils Percent Auto 59.7 % (50-75); Platelet Count 262 X10^3/uL (150-400); Red Blood Cell Count 4.54 X10^6/uL (4.5-5.9); White Blood Cell Count 8.1 X10^3/uL (4.5-11.0)
[2019-01-26 12:40] LABS: LDH Body Fluid 383 U/L
[2019-01-26 13:12] LABS: Alanine Aminotransferase 65 IU/L (21-72); Albumin 5.2 g/dL (3.5-5.0); Albumin Globulin Ratio 1.8 (1.0-2.8); Alkaline Phosphatase 52 U/L (38-126); Aspartate Aminotransferase 56 IU/L (17-59); BUN Creatinine Ratio 16.3 (6-22); Bilirubin Total 0.4 mg/dL (0.2-1.3); Blood Urea Nitrogen 13 mg/dL (9-20); Calcium 10.1 mg/dL (8.4-10.2); Carbon Dioxide 27 mmol/L (22-32); Chloride 95 mmol/L (98-107); Estimated Glomerular Filt Rate > 60.0 mL/min (>60); Globulin 2.9 g/dL (1.7-4.1); Glucose 81 mg/dL (70-100); HEMOLYSIS < 15 (0-50); Potassium 3.9 mmol/L (3.4-5.1); Sodium 137 mmol/L (137-145); Total Protein 8.1 g/dL (6.3-8.2)
[2019-01-28 13:10] LABS: Beta-2-Microglobulin 1.53 mg/L (< 2.52)
[2019-01-28 21:36] LABS: Albumin 4.9 g/dL (3.8-4.8); Alpha 1 Globulin 0.2 g/dL (0.2-0.3); Alpha 2 Globulin 0.5 g/dL (0.5-0.9); Beta 1 Globulin 0.5 g/dL (0.4-0.6); Gamma Globulin 1.1 g/dL (0.8-1.7); Protein, Total 7.6 g/dL (6.1-8.1)
--- NOTE | 2019-02-03 13:49 | ONC.PN ---
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 Radiation was completed September 02, 2017. Patient presents here today for scheduled follow-up visit. Patient currently has been on ketogenic diet. He has lost probably 10-20 lb. He said he feels healthy and good. He does not have any fever or chills. He does not have night sweats. His energetic. Does not have any new palpable masses or lumps in the axilla or in the chest area. No abdominal pain no diarrhea and no constipation. Oncological History He felt a tennis ball sized mass on his left chest wall in March 2017. He underwent a mammogram and ultrasound and core biopsy of a left breast mass on 05/07/2017. [facility] consulted and concluded that the expression of CD10, BCL6, and BCL2 is most consistent with in follicular lymphoma. He was consulted with Dr. Ritchie Clemente at [facility]. A PET CT scan was performed in [place] on 05/28/2017 and showed a 3.1 x 2.2 cm soft tissue nodule in the subcutaneous tissues of the left anterior chest wall with an SUV maximum 5.6 with no other sites of active disease. Dr. Clemente performed a bone marrow biopsy and aspiration which was negative for lymphoma. He underwent excisional biopsy of left chest wall mass on July 04 showing a B-cell lymphoma with follicular center origin, grade 1-[address] Galan felt that he should undergo radiation therapy with no chemotherapy. Dr. Engel at [facility] was consulted and patient underwent radiation therapy 3060 cGy in 10 doses between 08/11/2017 to 09/02/2017. - Additional ROS All systems PM: reviewed and no additional remarkable complaints except as stated Home Medications and Allergies Home Medications Medication Instructions Recorded Confirmed Type aspirin 81 mg PO QDAY #0 09/29/17 08/06/18 History cyanocobalamin (vitamin B-12) 1,000 mcg PO QDAY #0 10/21/17 08/06/18 History multivitamin [Multiple Vitamins] 1 tab PO QDAY #0 10/21/17 08/06/18 History fluticasone propionate [Flonase 2 spray INTRANASAL PRN PRN 08/06/18 08/06/18 History Allergy Relief] lisinopril 2.5 mg PO DAILY 08/06/18 08/06/18 History Allergies Allergy/AdvReac Type Severity Reaction Status Date / Time meperidine [MEPERIDINE] Allergy Severe SEIZURE Unverified 01/20/18 12:26 Exam Vital signs: Last Vital Signs Temp 97.2 F L 02/03/19 15:13 Pulse 70 02/03/19 15:13 Resp 18 02/03/19 15:13 BP 131/86 02/03/19 15:13 Pulse Ox 98 02/03/19 15:13 ECOG 1 Narrative: Gen: WDWN, NAD, pleasant and cooperative. Came here by himself. HEENT: NCAT, EOMI, PERRLA, anicteric sclera. Neck: Supple, No palpable thyromegaly or lymphadenopathy. Respiratory: CTAB, no wheezes audible. No JVD Cardiovascular: RRR, S1 and S2 normal, no M/G/R. Abdomen: Soft, NTND, BS normal, no palpable organomegaly Extremities: No LE pitting edema. Lymphatic: no palpable lymph nodes in the neck, axillae, or groins. Neurological: AOx3, CN II-XII grossly intact. No focal motor or sensory deficit. Psychiatric: Good judgment and insight; normal affect; normal thought process; cooperative, no depression, no anxiety. Results - Labs Laboratory Last Values WBC 8.1 X10^3/uL (4.5-11.0) 01/26/19 12:13 RBC 4.54 X10^6/uL (4.5-5.9) 01/26/19 12:13 Hgb 14.8 g/dL (13.5-17.5) 01/26/19 12:13 Hct 43.5 % (41-53) 01/26/19 12:13 MCV 95.9 fL (80-100) 01/26/19 12:13 MCH 32.5 PG (26-34) 01/26/19 12:13 MCHC 33.9 % (30-36) 01/26/19 12:13 RDW 13.0 % (11.6-14.8) 01/26/19 12:13 Plt Count 262 X10^3/uL (150-400) 01/26/19 12:13 Neut % (Auto) 59.7 % (50-75) 01/26/19 12:13 Lymph % (Auto) 26.0 % (25-40) 01/26/19 12:13 [place] % (Auto) 10.7 % (3-14) 01/26/19 12:13 Eos % (Auto) 2.9 % (2-4) 01/26/19 12:13 Baso % (Auto) 0.7 % (0-2) 01/26/19 12:13 Neut # (Auto) 4800 /uL (5041-6413) 01/26/19 12:13 Lymph # (Auto) 2100 /uL (7855-6492) 01/26/19 12:13 [place] # (Auto) 900 /uL (0-900) 01/26/19 12:13 Eos # (Auto) 200 /uL (0-450) 01/26/19 12:13 Baso # (Auto) 100 /uL (0-100) 01/26/19 12:13 Sodium 137 mmol/L (137-145) 01/26/19 12:13 Potassium 3.9 mmol/L (3.4-5.1) 01/26/19 12:13 Chloride 95 mmol/L (98-107) L 01/26/19 12:13 Carbon Dioxide 27 mmol/L (22-32) 01/26/19 12:13 BUN 13 mg/dL (9-20) 01/26/19 12:13 Creatinine 0.80 mg/dL (0.66-1.25) 01/26/19 12:13 Estimated GFR > 60.0 mL/min (>60) 01/26/19 12:13 BUN/Creatinine Ratio 16.3 (6-22) 01/26/19 12:13 Glucose 81 mg/dL (70-100) 01/26/19 12:13 Calcium 10.1 mg/dL (8.4-10.2) 01/26/19 12:13 Total Bilirubin 0.4 mg/dL (0.2-1.3) 01/26/19 12:13 AST 56 IU/L (17-59) 01/26/19 12:13 ALT 65 IU/L (21-72) 01/26/19 12:13 Alkaline Phosphatase 52 U/L (38-126) 01/26/19 12:13 Lactate Dehydrogenase 435 U/L (313-618) 12/07/18 15:31 Serum Total Protein 7.6 g/dL (6.1-8.1) 01/26/19 12:13 Total Protein 8.1 g/dL (6.3-8.2) 01/26/19 12:13 Albumin 4.9 g/dL (3.8-4.8) H 01/26/19 12:13 Globulin 2.9 g/dL (1.7-4.1) 01/26/19 12:13 Albumin/Globulin Ratio 1.8 (1.0-2.8) 01/26/19 12:13 Vtkvs-4-Jfvcuxniy 0.2 g/dL (0.2-0.3) 01/26/19 12:13 Szxyu-6-Lkywyzmuc 0.5 g/dL (0.5-0.9) 01/26/19 12:13 Wlge-7-Zcujqxza 0.5 g/dL (0.4-0.6) 01/26/19 12:13 Gzyr-2-Pmmyumli 0.4 g/dL (0.2-0.5) 01/26/19 12:13 Msfm-0-Unbcsczlrxruq 1.53 mg/L (< 2.52) 01/26/19 12:13 Gamma Globulins 1.1 g/dL (0.8-1.7) 01/26/19 12:13 Abnorm Protein Band 1 Not Reportable 01/26/19 12:13 Abnorm Protein Band 2 Not Reportable 01/26/19 12:13 Abn Gamma Band 3 Serum Not Reportable 01/26/19 12:13 PEP Comment See note 01/26/19 12:13 Fluid LDH 383 U/L 01/26/19 12:13 - Imaging Additional studies: Procedures Injection or infusion of other therapeutic or prophylactic substance (10/29/13) Assessment and Plan (1) Follicular lymphoma Patient is a 53-year-old male who carries a diagnosis of stage IAE follicular lymphoma involving the left chest wall. He is status post local radiation therapy. I reviewed the laboratory tests from today. I do not think there is any abnormal values especially the CBC is normal and the LDH level is also normal. I talked with him that there is no evidence to suggest disease recurrence or metastasis. However follicular lymphoma is a indolent and incurable disease. We will need continued regular follow-up. Plan: RTC in 6 months, CBC, CMP, LDH, B2M Call for any concerns or questions.
[2019-02-03 15:13] VITALS: BP 131/86; PULSE 70; RESP 18; TEMP 36.2; O2SAT 98
== END ==
PROVIDERS: Internal Medicine Hematology & Oncology; PCP Internal Medicine; Visit Provider Nurse Practitioner Gerontology
DX: C82.92 Follicular lymphoma, unspecified, intrathoracic lymph nodes (principal)
CPT/HCPCS: 36415; 80053; 82232; 83615; 84155; 84165; 85025; 99214